=== PATIENT | male | born 1985 | race Caucasian/White ===

== ENCOUNTER 2024-01-29 17:49 | Emergency (ER) | payer SELFPAY ==
[~2024-01-29] VITALS: Ht 177.8 cm; Wt 84.0 kg
[2024-01-29 17:51] VITALS: O2SAT 99
[2024-01-29] MEDS ORDERED: ONDA4TAB50 MT (20:44)
[2024-01-29] MEDS ORDERED: TOPUD MT (20:44)
[2024-01-29 20:54] VITALS: BP 133/80; PULSE 97; RESP 18; TEMP 98.3
== END 2024-01-29 21:01 | disposition home or self-care (01) ==
LOC: ER 17:49
DX: S06.0X0A Concussion without loss of consciousness, initial encounter (principal); F10.20 Alcohol dependence, uncomplicated; F19.90 Other psychoactive substance use, unspecified, uncomplicated; W18.30XA Fall on same level, unspecified, initial encounter; Y93.89 Activity, other specified; Y92.89 Other specified places as the place of occurrence of the external cause; Y99.8 Other external cause status; Y90.9 Presence of alcohol in blood, level not specified
CPT/HCPCS: 99284